=== PATIENT | female | born 1945 | race Caucasian/White ===

== ENCOUNTER 2024-04-19 23:06 | Inpatient (IN) | payer MEDICARE, MEDICAID ==
[~2024-04-19] VITALS: Ht 162.6 cm; Wt 113.0 kg
[~2024-04-19 23:06] MED LIST: ATOR10TA87 PO; CHLO25TA10 PO; ESOM40CA PO; GABA-1555 PO; HYDR-3973 PO; INSU100C4 SQ; INSU100V12 SQ; IPRA3AMP31 IH; LEVO50CA4 PO; LOSA50TA64 PO; NITR0.4T51 SL; WARF-55 PO; WARF4TAB69 PO
[2024-04-20 00:29] LABS: BILIRUBIN,URINE NEGATIVE (Neg); CLARITY,URINE CLEAR (Clear); COLOR,URINE YELLOW (Yellow); GLUCOSE, URINE >=1000 mg/dl (Neg); KETONES,URINE NEGATIVE (Neg); LEUKOCYTE ESTERASE ,URINE NEGATIVE (Neg); NITRITES, URINE NEGATIVE (Neg); OCCULT BLOOD,URINE LARGE (Neg); PH,URINE 6.5 (4.8-8.0); PROTEIN,URINE NEGATIVE (Neg); UROBILINOGEN,URINE 0.2 E.U/dL (0.2-1.0)
[2024-04-20 00:30] LABS: UA COLLECTION TYPE CLN CATCH MIDSTREAM
[2024-04-20 00:34] LABS: BACTERIA,URINE NONE SEEN /HPF (Neg); RBC,URINE 50-100 /HPF (0-2); SQUAMOUS EPITHELIAL CELL,UR NONE SEEN /LPF (FEW); WBC,URINE NONE SEEN /HPF (0-4)
[2024-04-20] MEDS ORDERED: iohexol 300mg/ml 100ml inj. ONE (00:48)
[2024-04-20 00:51] LABS: BASOPHILS % (AUTO) 0.4 % (0-1); EOSINOPHILS # (AUTO) 0.1 X10'3 (0-0.9); EOSINOPHILS % (AUTO) 0.9 % (0-6); HEMATOCRIT 34.1 % (35.0-45.0); HEMOGLOBIN 11.4 g/dl (12.0-16.0); LYMPHOCYTES % (AUTO) 11.3 % (21-51); MEAN CORPUSCULAR HEMOGLOBIN 30.6 PG (27.0-31.0); MEAN CORPUSCULAR HGB CONC 33.4 g/dL (33.0-36.5); MEAN CORPUSCULAR VOLUME 91.7 FL (78-98); MEAN PLATELET VOLUME 9.3 FL (7.4-10.4); MONOCYTES # (AUTO) 0.7 X10'3 (0-0.9); MONOCYTES % (AUTO) 8.4 % (2-12); NEUTROPHILS # (AUTO) 6.8 X10'3 (1.8-7.7); PLATELET COUNT 195 X10'3 (140-440); RED BLOOD COUNT 3.72 X10'6 (4.20-5.60); WHITE BLOOD COUNT 8.6 X10'3 (4.5-11.0)
[2024-04-20 01:05] LABS: ALANINE AMINOTRANSFERASE 40 U/L (12-78); ALBUMIN 3.6 G/DL (3.4-5.0); ALBUMIN/GLOBULIN RATIO 1.1 (1.1-1.5); ALKALINE PHOSPHATASE 115 IU/L (46-116); ANION GAP 6 (8-16); ASPARTATE AMINO TRANSFERASE 23 U/L (10-37); BILIRUBIN,TOTAL 0.5 MG/DL (0.1-1.0); BLOOD UREA NITROGEN 30 MG/DL (7-18); BUN/CREATININE RATIO 27.5 (10.0-20.0); CALCIUM 9.2 MG/DL (8.5-10.1); CHLORIDE 105 MMOL/L (99-107); CREATININE 1.09 MG/DL (0.40-0.90); GLUCOSE 261 MG/DL (70-104); LIPASE 14 U/L (16-77); POTASSIUM 4.2 MMOL/L (3.5-5.1); SODIUM 141 MMOL/L (135-145); TOTAL CARBON DIOXIDE 30.4 MMOL/L (24-32); TOTAL PROTEIN 6.9 G/DL (6.4-8.2); eCRCL 37 ML/MIN; eGFR 49 ML/MIN
[2024-04-20] MEDS: ondansetron/PF 4mg/2ml inj IV ONE (05:26)
[2024-04-20] MEDS ORDERED: magnesium hydroxide 30ml (MOM) UD suspension PO PRN (05:55)
[2024-04-20] MEDS ORDERED: magnesium sulf-water 2g/50mL 50 ML IV PRN (05:55)
[2024-04-20] MEDS ORDERED: magnesium Cl slow-release 64mg tablet PO PRN (05:55)
[2024-04-20] MEDS ORDERED: mag hydrox/Alum hydrox/simeth 30ml oral suspension PO PRN (05:55)
[2024-04-20] MEDS ORDERED: potassium Cl 20 mEq SR tablet PO PRN ×2 (05:55)
[2024-04-20] MEDS ORDERED: potassium Cl 40MEQ/1/2NS 520ml 520 ML IV PRN (05:55)
[2024-04-20] MEDS ORDERED: magnesium sulf-water 4G/100mL 100 ML IV PRN (05:55)
[2024-04-20 07:23] LABS: APTT 39 SECONDS (22-32); INR 2.6 INR; PROTHROMBIN TIME 25.6 SECONDS (9.0-12.0)
[2024-04-20] MEDS: K and/or MAG REPLACEMENT MC SCH (08:00)
[2024-04-20] MEDS: docusate sod 100mg capsule PO SCH (08:00)
[2024-04-20 08:10] LABS: HEMATOCRIT 34.3 % (35.0-45.0); MEAN CORPUSCULAR HEMOGLOBIN 29.6 PG (27.0-31.0); MEAN CORPUSCULAR HGB CONC 32.2 g/dL (33.0-36.5); MEAN PLATELET VOLUME 9.8 FL (7.4-10.4); PLATELET COUNT 193 X10'3 (140-440); RED BLOOD COUNT 3.73 X10'6 (4.20-5.60); RED CELL DISTRIBUTION WIDTH 14.8 % (11.5-14.5); WHITE BLOOD COUNT 8.7 X10'3 (4.5-11.0)
[2024-04-20] MEDS ORDERED: nitroGLYCERIN 0.4mg SUBLingual tab SL PRN (10:50)
[2024-04-20] MEDS ORDERED: chlorthalidone 25mg tablet PO SCH (10:50)
[2024-04-20] MEDS ORDERED: bisacodyl 10mg suppository rectal RC PRN (11:15)
[2024-04-20] MEDS: polyethylene glycol 3350 17gm powd pack PO SCH (11:15)
[2024-04-20] MEDS: losartan 50mg tablet PO SCH (11:19)
[2024-04-20] MEDS: atorvastatin 10mg tablet PO SCH (11:19)
[2024-04-20] MEDS: normal saline 1000ml 1,000 ML IV SCH (11:48)
[2024-04-20] MEDS: pantoprazole 40MG/NS 100ML BAG 100 ML IV SCH (11:49)
[2024-04-20] MEDS ORDERED: ipratropium/albuterol 3ml nebule IH SCH (13:00)
[2024-04-20] MEDS: gabapentin 400mg capsule PO SCH (13:13)
[2024-04-20] MEDS: HYDROcodone/acetaminophen 10/325mg tab PO ONE ×2 (13:13→20:17)
[2024-04-20] MEDS: ondansetron/PF 4mg/2ml inj IV PRN (13:13)
[2024-04-20 14:49] LABS: HEMATOCRIT 31.1 % (35.0-45.0); HEMOGLOBIN 10.2 g/dl (12.0-16.0); MEAN CORPUSCULAR HEMOGLOBIN 30.2 PG (27.0-31.0); MEAN CORPUSCULAR HGB CONC 32.9 g/dL (33.0-36.5); MEAN CORPUSCULAR VOLUME 91.7 FL (78-98); MEAN PLATELET VOLUME 9.6 FL (7.4-10.4); PLATELET COUNT 178 X10'3 (140-440); RED BLOOD COUNT 3.39 X10'6 (4.20-5.60); RED CELL DISTRIBUTION WIDTH 14.6 % (11.5-14.5); WHITE BLOOD COUNT 7.5 X10'3 (4.5-11.0)
[2024-04-20] MEDS: ipratropium/albuterol 3ml nebule IH SCH (15:00)
[2024-04-20 15:24] VITALS: PULSE 76; RESP 18; O2SAT 96
[2024-04-20] MEDS ORDERED: dextrose 50%-water 50ml dispensing syringe IV PRN ×2 (19:15)
[2024-04-20] MEDS ORDERED: DEXTROSE 15 GM of carb/4 tabs (each vial/BOTTLE has 4 tablets) PO PRN ×2 (19:15)
[2024-04-20] MEDS ORDERED: glucagon, human recombinant 1mg kit SUBCUT PRN (19:15)
[2024-04-20] MEDS: INSULIN LISPRO 100 UNIT/ML INSULN.PEN MULTI-DOSE SQ SCH (20:57)
[2024-04-20] MEDS: insulin glargine (Lantus) pen - multi-dose SQ SCH (20:58)
[2024-04-20 21:57] VITALS: PULSE 67; RESP 15; O2SAT 97
[2024-04-21] VITALS (7 sets, daily range): BP systolic 158–172; BP diastolic 39–63; PULSE 65–99; RESP 16–20; TEMP 97–98.2; O2SAT 98–100
[2024-04-21 03:05] LABS: BASOPHILS % (AUTO) 0.4 % (0-1); EOSINOPHILS # (AUTO) 0.1 X10'3 (0-0.9); EOSINOPHILS % (AUTO) 1.7 % (0-6); HEMATOCRIT 30.9 % (35.0-45.0); HEMOGLOBIN 10.2 g/dl (12.0-16.0); LYMPHOCYTES # (AUTO) 1.5 X10'3 (1.1-4.8); LYMPHOCYTES % (AUTO) 20.7 % (21-51); MEAN CORPUSCULAR HEMOGLOBIN 30.5 PG (27.0-31.0); MEAN CORPUSCULAR HGB CONC 32.9 g/dL (33.0-36.5); MEAN CORPUSCULAR VOLUME 92.6 FL (78-98); MEAN PLATELET VOLUME 9.6 FL (7.4-10.4); MONOCYTES # (AUTO) 0.9 X10'3 (0-0.9); MONOCYTES % (AUTO) 12.2 % (2-12); NEUTROPHILS # (AUTO) 4.8 X10'3 (1.8-7.7); PLATELET COUNT 177 X10'3 (140-440); RED BLOOD COUNT 3.34 X10'6 (4.20-5.60); RED CELL DISTRIBUTION WIDTH 14.6 % (11.5-14.5); WHITE BLOOD COUNT 7.3 X10'3 (4.5-11.0)
[2024-04-21 03:17] LABS: INR 2.1 INR
[2024-04-21 03:22] LABS: ALBUMIN 2.9 G/DL (3.4-5.0); ANION GAP 8 (8-16); APTT 39 SECONDS (22-32); BLOOD UREA NITROGEN 26 MG/DL (7-18); BUN/CREATININE RATIO 23.6 (10.0-20.0); CALCIUM 8.6 MG/DL (8.5-10.1); CHLORIDE 106 MMOL/L (99-107); GLUCOSE 246 MG/DL (70-104); MAGNESIUM 2.1 MG/DL (1.5-2.4); PHOSPHORUS 3.7 MG/DL (2.3-4.5); POTASSIUM 3.8 MMOL/L (3.5-5.1); PROTHROMBIN TIME 20.6 SECONDS (9.0-12.0); SODIUM 141 MMOL/L (135-145); TOTAL CARBON DIOXIDE 27.5 MMOL/L (24-32); eCRCL 36 ML/MIN; eGFR 48 ML/MIN
[2024-04-21] MEDS ORDERED: hydrALAZINE 20mg/ml inj. IV PRN ×2 (07:55→13:50)
[2024-04-21] MEDS: PERFLUTREN PROTEIN-A MICROSPHR (Optison) 0.22 MG/ML 3ML VIAL IV ONE (07:55)
[2024-04-21] MEDS ORDERED: losartan 50mg tablet PO SCH (08:00)
[2024-04-21] MEDS: levoTHYROXINE 25mcg tablet PO SCH (08:04)
[2024-04-21] MEDS: pantoprazole 40mg Tablet.DR PO SCH (08:04)
[2024-04-21] MEDS: INSULIN LISPRO 100 UNIT/ML INSULN.PEN MULTI-DOSE SQ SCH (08:08)
[2024-04-21] MEDS: chlorthalidone 25mg tablet PO SCH (11:07)
[2024-04-21] MEDS: amLODIPine 5mg tablet PO SCH (11:07)
[2024-04-21] MEDS: HYDROcodone/acetaminophen 5mg/325mg tablet PO PRN (11:44)
[2024-04-21] MEDS: sennosides/docusate sodium tablet PO ONE (11:45)
[2024-04-21] MEDS: insulin glargine (Lantus) pen - multi-dose SQ SCH (21:29)
[2024-04-21] MEDS: sennosides/docusate sodium tablet PO SCH (21:29)
[2024-04-22] VITALS (8 sets, daily range): BP systolic 157–175; BP diastolic 51–69; PULSE 65–78; RESP 16–20; TEMP 97.2–97.9; O2SAT 94–100
[2024-04-22 06:06] LABS: BASOPHILS % (AUTO) 0.3 % (0-1); EOSINOPHILS # (AUTO) 0.2 X10'3 (0-0.9); EOSINOPHILS % (AUTO) 2.8 % (0-6); HEMATOCRIT 35.2 % (35.0-45.0); HEMOGLOBIN 11.4 g/dl (12.0-16.0); LYMPHOCYTES # (AUTO) 1.8 X10'3 (1.1-4.8); LYMPHOCYTES % (AUTO) 21.1 % (21-51); MEAN CORPUSCULAR HGB CONC 32.3 g/dL (33.0-36.5); MEAN CORPUSCULAR VOLUME 93.1 FL (78-98); MEAN PLATELET VOLUME 9.2 FL (7.4-10.4); MONOCYTES # (AUTO) 0.8 X10'3 (0-0.9); MONOCYTES % (AUTO) 9.2 % (2-12); NEUTROPHILS # (AUTO) 5.6 X10'3 (1.8-7.7); NEUTROPHILS % (AUTO) 66.6 % (42-75); PLATELET COUNT 219 X10'3 (140-440); RED BLOOD COUNT 3.78 X10'6 (4.20-5.60); WHITE BLOOD COUNT 8.3 X10'3 (4.5-11.0)
[2024-04-22 06:21] LABS: APTT 33 SECONDS (22-32); INR 1.8 INR; PROTHROMBIN TIME 17.6 SECONDS (9.0-12.0)
[2024-04-22 06:45] LABS: ALBUMIN 3.5 G/DL (3.4-5.0); ANION GAP 11 (8-16); BLOOD UREA NITROGEN 21 MG/DL (7-18); BUN/CREATININE RATIO 20.2 (10.0-20.0); CALCIUM 9.3 MG/DL (8.5-10.1); CHLORIDE 104 MMOL/L (99-107); CREATININE 1.04 MG/DL (0.40-0.90); GLUCOSE 252 MG/DL (70-104); MAGNESIUM 2.2 MG/DL (1.5-2.4); PHOSPHORUS 3.6 MG/DL (2.3-4.5); POTASSIUM 3.9 MMOL/L (3.5-5.1); SODIUM 141 MMOL/L (135-145); TOTAL CARBON DIOXIDE 26.5 MMOL/L (24-32); eCRCL 39 ML/MIN; eGFR 51 ML/MIN
[2024-04-22] MEDS: pantoprazole 40mg Tablet.DR PO SCH (08:41)
[2024-04-22] MEDS ORDERED: DILT240C47 (08:45)
[2024-04-22] MEDS ORDERED: EZET10TA48 PO (08:45)
[2024-04-22] MEDS ORDERED: amLODIPine 5mg tablet PO ONE (08:50)
[2024-04-22] MEDS ORDERED: mineral oil 133ml enema RC PRN (08:55)
[2024-04-22] MEDS ORDERED: NOR5T PO (11:24)
[2024-04-22] MEDS: insulin glargine (Lantus) pen - multi-dose SQ SCH (21:00)
[2024-04-22] MEDS: gabapentin 300mg capsule PO SCH (21:53)
[2024-04-22] MEDS: PEG 3350/Na sulf,bicarb,Cl/KCl oral sol 4 liter bottle PO ONE (23:25)
[2024-04-23] VITALS (7 sets, daily range): BP systolic 158–187; BP diastolic 74–93; PULSE 70–92; RESP 14–18; TEMP 97.2–98.1; O2SAT 98–100
[2024-04-23] MEDS: hydrALAZINE 20mg/ml inj. IV PRN (04:39)
[2024-04-23 06:15] LABS: BASOPHILS % (AUTO) 0.4 % (0-1); EOSINOPHILS # (AUTO) 0.2 X10'3 (0-0.9); EOSINOPHILS % (AUTO) 2.4 % (0-6); HEMATOCRIT 35.9 % (35.0-45.0); HEMOGLOBIN 11.8 g/dl (12.0-16.0); LYMPHOCYTES # (AUTO) 1.4 X10'3 (1.1-4.8); LYMPHOCYTES % (AUTO) 17.6 % (21-51); MEAN CORPUSCULAR HEMOGLOBIN 30.5 PG (27.0-31.0); MEAN CORPUSCULAR HGB CONC 32.9 g/dL (33.0-36.5); MEAN CORPUSCULAR VOLUME 92.7 FL (78-98); MEAN PLATELET VOLUME 8.8 FL (7.4-10.4); MONOCYTES # (AUTO) 0.8 X10'3 (0-0.9); NEUTROPHILS # (AUTO) 5.7 X10'3 (1.8-7.7); NEUTROPHILS % (AUTO) 69.6 % (42-75); PLATELET COUNT 208 X10'3 (140-440); RED BLOOD COUNT 3.87 X10'6 (4.20-5.60); RED CELL DISTRIBUTION WIDTH 14.7 % (11.5-14.5); WHITE BLOOD COUNT 8.1 X10'3 (4.5-11.0)
[2024-04-23 06:35] LABS: APTT 26 SECONDS (22-32); INR 1.5 INR; PROTHROMBIN TIME 15.6 SECONDS (9.0-12.0)
[2024-04-23 06:40] LABS: ALBUMIN 3.3 G/DL (3.4-5.0); ANION GAP 9 (8-16); BLOOD UREA NITROGEN 17 MG/DL (7-18); BUN/CREATININE RATIO 18.1 (10.0-20.0); CALCIUM 9.2 MG/DL (8.5-10.1); CHLORIDE 105 MMOL/L (99-107); CREATININE 0.94 MG/DL (0.40-0.90); GLUCOSE 98 MG/DL (70-104); MAGNESIUM 1.9 MG/DL (1.5-2.4); PHOSPHORUS 3.5 MG/DL (2.3-4.5); SODIUM 145 MMOL/L (135-145); THYROID STIMULATING HORMONE 4.55 ulU/ml (0.34-4.50); TOTAL CARBON DIOXIDE 31.2 MMOL/L (24-32); eCRCL 43 ML/MIN; eGFR 58 ML/MIN
[2024-04-23] MEDS ORDERED: hydrALAZINE 20mg/ml inj. IV PRN (07:20)
[2024-04-23] MEDS: levoTHYROXINE 25mcg tablet PO SCH (07:54)
[2024-04-23] MEDS: amLODIPine 5mg tablet PO SCH (08:05)
[2024-04-23] MEDS ORDERED: diltiazem CD 120mg capsule (once-daily) PO SCH (11:30)
== END 2024-04-23 11:10 | disposition home health service (06) | DRG 394 ==
LOC: ER 23:07 → ED HOLD 04-20 06:03 → EDBEDREQ 04-21 03:09 → ORTHO 4S 04-21 07:18
PROVIDERS: ADMIT Internal Medicine Critical Care Medicine; ATTEND Internal Medicine
PROC: BW211ZZ Computerized Tomography (CT Scan) of Abdomen and Pelvis using Low Osmolar Contrast (ICD-10-PCS; principal; 2024-04-20)
DX: K64.8 Other hemorrhoids (principal); I50.32 Chronic diastolic (congestive) heart failure; I48.91 Unspecified atrial fibrillation; I11.0 Hypertensive heart disease with heart failure; D64.9 Anemia, unspecified; E11.9 Type 2 diabetes mellitus without complications; G89.29 Other chronic pain; K59.09 Other constipation; E03.9 Hypothyroidism, unspecified; M54.9 Dorsalgia, unspecified; K21.9 Gastro-esophageal reflux disease without esophagitis; I27.22 Pulmonary hypertension due to left heart disease; Z79.899 Other long term (current) drug therapy; Z79.01 Long term (current) use of anticoagulants; Z79.4 Long term (current) use of insulin; Z87.891 Personal history of nicotine dependence; Z88.0 Allergy status to penicillin; Z88.2 Allergy status to sulfonamides
CPT/HCPCS: 36415; 74177; 80048; 80053; 81001; 82948; 83690; 83735; 84100; 84145; 84443; 85025; 85027; 85610; 85651; 85730; 87081; 93306; 94640; 94760; 96374; 96375; 96376; 97110; 97116; 97161; 99285; A6449; G0378; J0360; J1815; J2405; J2470; J7030; Q9967